=== PATIENT | male | born 1995 | race Caucasian/White ===

== ENCOUNTER 2017-10-03 21:56 | Emergency (ER) | payer OTHER, SELFPAY ==
[2017-10-03 21:57] VITALS: BP 118/72; PULSE 73; RESP 16; TEMP 36.6; O2SAT 99; BMI 25.4
--- NOTE | 2017-10-04 00:22 | ED.VISSUMM ---
- ER Visit Summary Date of Service: 10/04/17 Chief Complaint: Bilateral eye pain with photophobia History of Present Illness: The patient is a 22 M worsening eye pain photophobia today. Mild symptoms over 2 weeks. Wears corrective glasses for distance. Last eye check a year ago. 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 No evaluation of last 2 weeks. No blurry vision. No trauma. Physical Examination: General: Alert and oriented ?3, no acute distress HEENT: Normocephalic, atraumatic. Moist mucosa membranes. Visual acuity 20/30 OD, 20/30 OS, 20/25 OU. Tetracaine was instilled both eyes, there was no uptake. Mild erythema right lateral sclera. No abrasions. Neck: supple, nontender.. Cardiovascular: Regular rate and rhythm, no murmurs Respiratory: Normal breath sounds, symmetric, no distress Abdomen: Soft, nontender, nondistended Extremities: Nontender, no edema, pulses intact ?4 Neuro: no focal neurological deficits. Test Results: [] Emergency Department Course and Treatment: Patient with keratitis symptoms with UV exposure. No signs of uptake at this time. Discussed with patient use rewetting drops. He will needed eye shield for protection if he works around UV exposure. He is given follow-up with [facility] due to work related. Treatment Plan: [] Disposition: Discharge Impression: 1. Keratitis secondary to UV exposure This note was generated with dscout dictation software. It may contain incorrect words, spelling, and punctuation that were not noted in review of the chart prior to signing ED Disposition - Plan for ED Patient: Disposition: Home or Assisted Living Chief Complaint: Eye Problem Diagnosis: Keratitis Instructions: ED Keratitis UV Referrals: Avni Lynch MD [Primary Care Provider[facility] - [facility] [GROUP OF PHYSICIANS] - 3-5 Days
--- NOTE | 2017-10-04 00:25 | ED.DCSUM_ITS ---
- ER Visit Summary Date of Service: 10/04/17 Chief Complaint: Bilateral eye pain with photophobia History of Present Illness: The patient is a 22 M worsening eye pain photophobia today. Mild symptoms over 2 weeks. Wears corrective glasses for distance. Last eye check a year ago. 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 No evaluation of last 2 weeks. No blurry vision. No trauma. Physical Examination: General: Alert and oriented ?3, no acute distress HEENT: Normocephalic, atraumatic. Moist mucosa membranes. Visual acuity 20/30 OD, 20/30 OS, 20/25 OU. Tetracaine was instilled both eyes, there was no uptake. Mild erythema right lateral sclera. No abrasions. Neck: supple, nontender.. Cardiovascular: Regular rate and rhythm, no murmurs Respiratory: Normal breath sounds, symmetric, no distress Abdomen: Soft, nontender, nondistended Extremities: Nontender, no edema, pulses intact ?4 Neuro: no focal neurological deficits. Test Results: [] Emergency Department Course and Treatment: Patient with keratitis symptoms with UV exposure. No signs of uptake at this time. Discussed with patient use rewetting drops. He will needed eye shield for protection if he works around UV exposure. He is given follow-up with [facility] due to work related. Treatment Plan: [] Disposition: Discharge Impression: 1. Keratitis secondary to UV exposure This note was generated with Pongr dictation software. It may contain incorrect words, spelling, and punctuation that were not noted in review of the chart prior to signing ED Disposition - Plan for ED Patient: Disposition: Home or Assisted Living Chief Complaint: Eye Problem Diagnosis: Keratitis Instructions: ED Keratitis UV Referrals: Avni Lynch MD [Primary Care Provider] - [facility] [GROUP OF PHYSICIANS] - 3-5 Days
== END 2017-10-04 00:48 | disposition home or self-care (01) ==
PROVIDERS: Emergency Provider Emergency Medicine; Family Provider Family Medicine; PCP Family Medicine
DX: H16.8 Other keratitis (principal)
CPT/HCPCS: 99283